=== PATIENT | male | born 1985 | race Caucasian/White ===

== ENCOUNTER 2019-02-09 07:25 | Emergency (ER) | payer MEDICAID ==
[~2019-02-09] VITALS: Ht 172.7 cm; Wt 86.4 kg
[2019-02-09] MEDS ORDERED: SODIUM CHLORIDE 0.9% 1,000 ML IV ONE (07:42)
[2019-02-09] MEDS ORDERED: ONDANSETRON HCL 4 MG/2 ML VIAL IVP ONE (07:45)
[2019-02-09] MEDS ORDERED: MORPHINE SULFATE 4 MG/ML SYRINGE IVP ONE (07:45)
[2019-02-09 08:05] LABS: BASOPHILS % (AUTO) 0.3 % (0.0-2.0); EOSINOPHILS % (AUTO) 1.1 % (1.0-6.0); HEMATOCRIT 46.6 % (41-53); HEMOGLOBIN 15.9 g/dL (13.5-17.5); MEAN CORPUSCULAR HEMOGLOBIN 29.8 pg (26.0-34.0); MEAN CORPUSCULAR HGB CONC 34.1 G/dL (31.0-37.0); MEAN CORPUSCULAR VOLUME 87 fL (80-100); MONOCYTES # (AUTO) 1.1 K/uL (0.1-1.0); NEUTROPHILS # (AUTO) 9.4 K/uL (1.8-7.7); NEUTROPHILS % (AUTO) 68.6 % (40.0-70.0); PLATELET COUNT (AUTO) 236 K/uL (150-450); RED BLOOD CELL COUNT(AUTO) 5.35 MIL/uL (4.50-5.90); RED CELL DISTRIBUTION WIDTH 12.7 % (11.5-14.5)
[2019-02-09 08:08] LABS: ANION GAP 13 mmol/L (8-16); CALCIUM, TOTAL 9.4 mg/dL (8.8-10.5); CARBON DIOXIDE 23 mmol/L (22-29); CHLORIDE 103 mmol/L (98-107); CREATININE 0.82 mg/dL (0.60-1.30); GLOMERULAR FILTR. RATE CALC > 60 mL/min (>60); GLUCOSE,RANDOM 107 mg/dL (70-110); POTASSIUM 3.4 mmol/L (3.5-5.1); SODIUM SERUM 139 mmol/L (136-145); UREA NITROGEN, BLOOD 12 mg/dL (7-18)
[2019-02-09 08:14] LABS: ALANINE AMINOTRANSFERASE 40 U/L (12-78); ALBUMIN 4.1 g/dL (3.4-5.0); ALKALINE PHOSPHATASE 88 U/L (46-116); ASPARTATE AMINOTRANSFERASE 24 U/L (15-37); BILIRUBIN,TOTAL 0.7 mg/dL (0.1-1.0); LIPASE 189 U/L (73-393)
[2019-02-09] MEDS ORDERED: IOVERSOL 350 MG/ML 150 ML VIAL ONE (08:21)
[2019-02-09] MEDS ORDERED: SODIUM CHLORIDE 0.9% 100 ML ONE (08:21)
[2019-02-09 09:07] LABS: APPEARANCE,URINE CLEAR (CLEAR); BILIRUBIN,URINE NEGATIVE (NEGATIVE); GLUCOSE, URINE (UA) NEGATIVE (NEGATIVE); KETONES,URINE NEGATIVE (NEGATIVE); LEUKOCYTE ESTERASE ,URINE NEGATIVE (NEGATIVE); NITRATE,URINE NEGATIVE (NEGATIVE); OCCULT BLOOD,URINE NEGATIVE (NEGATIVE); PROTEIN,URINE NEGATIVE (NEGATIVE); UROBILINOGEN,URINE 0.2 mg/dL (<=1.0)
[2019-02-09] MEDS ORDERED: MetroNIDAZOLE 500 MG/NACL 100 ML IV ONE (09:30)
[2019-02-09] MEDS ORDERED: CIPROFLOXACIN 400 MG/D5% WATER 200 ML IV ONE (09:30)
[2019-02-09] MEDS ORDERED: HYDROCODONE/ACETAMINOPHEN 5-325 MG TABLET PO ONE (11:00)
[2019-02-09 11:17] VITALS: BP 155/123
== END 2019-02-09 11:41 | disposition home or self-care (01) ==
LOC: EMS 07:27
DX: K57.32 Diverticulitis of large intestine without perforation or abscess without bleeding (principal)
CPT/HCPCS: 36415; 74177; 80053; 81003; 83690; 85025; 96361; 96365; 96366; 96368; 96375; 99284; J0744; J2270; J2405; J3490; J7030; J7050; Q9967

== ENCOUNTER 2019-05-29 11:04 | Emergency (ER) | payer MEDICAID ==
[~2019-05-29] VITALS: Ht 177.8 cm; Wt 84.1 kg
[2019-05-29 11:34] VITALS: BP 130/85
== END 2019-05-29 12:03 | disposition home or self-care (01) ==
LOC: EMS 11:05
DX: B02.9 Zoster without complications (principal); L30.9 Dermatitis, unspecified; R07.9 Chest pain, unspecified; M54.9 Dorsalgia, unspecified

== ENCOUNTER 2020-04-17 20:51 | Emergency (ER) | payer MEDICAID ==
[~2020-04-17] VITALS: Ht 177.8 cm; Wt 86.4 kg
[2020-04-17] MEDS ORDERED: SODIUM CHLORIDE 0.9% 1,000 ML IV ONE (22:45)
[2020-04-17] MEDS ORDERED: KETOROLAC TROMETHAMINE 30 MG/ML VIAL IVP ONE (22:45)
[2020-04-17] MEDS ORDERED: SODIUM CHLORIDE 0.9% 100 ML ONE (23:11)
[2020-04-17] MEDS ORDERED: IOVERSOL 350 MG/ML 100 ML VIAL ONE (23:11)
[2020-04-17 23:16] LABS: BASOPHILS % (AUTO) 0.5 % (0.0-2.0); EOSINOPHILS % (AUTO) 2.7 % (1.0-6.0); HEMOGLOBIN 14.7 g/dL (13.5-17.5); LYMPHOCYTES # (AUTO) 4.8 K/uL (1.0-4.8); LYMPHOCYTES % (AUTO) 45.4 % (22.0-44.0); MEAN CORPUSCULAR HEMOGLOBIN 29.9 pg (26.0-34.0); MEAN CORPUSCULAR HGB CONC 33.5 G/dL (31.0-37.0); MEAN CORPUSCULAR VOLUME 89 fL (80-100); MONOCYTES # (AUTO) 0.9 K/uL (0.1-1.0); MONOCYTES % (AUTO) 8.3 % (2.0-9.0); NEUTROPHILS # (AUTO) 4.6 K/uL (1.8-7.7); NEUTROPHILS % (AUTO) 43.1 % (40.0-70.0); PLATELET COUNT (AUTO) 263 K/uL (150-450); RED BLOOD CELL COUNT(AUTO) 4.93 MIL/uL (4.50-5.90); RED CELL DISTRIBUTION WIDTH 12.7 % (11.5-14.5)
[2020-04-17 23:24] LABS: ANION GAP 10 mmol/L (8-16); CALCIUM, TOTAL 8.7 mg/dL (8.8-10.5); CARBON DIOXIDE 26 mmol/L (22-29); CHLORIDE 105 mmol/L (98-107); CREATININE 0.72 mg/dL (0.60-1.30); GLOMERULAR FILTR. RATE CALC > 60 mL/min (>60); GLUCOSE,RANDOM 104 mg/dL (70-110); POTASSIUM 3.5 mmol/L (3.5-5.1); SODIUM SERUM 141 mmol/L (136-145); UREA NITROGEN, BLOOD 13 mg/dL (7-18)
[2020-04-17 23:30] LABS: ALANINE AMINOTRANSFERASE 36 U/L (12-78); ALBUMIN 4.2 g/dL (3.4-5.0); ALKALINE PHOSPHATASE 94 U/L (46-116); APPEARANCE,URINE CLEAR (CLEAR); ASPARTATE AMINOTRANSFERASE 22 U/L (15-37); BILIRUBIN,TOTAL 0.2 mg/dL (0.1-1.0); BILIRUBIN,URINE NEGATIVE (NEGATIVE); GLUCOSE, URINE (UA) NEGATIVE (NEGATIVE); KETONES,URINE NEGATIVE (NEGATIVE); LEUKOCYTE ESTERASE ,URINE SMALL (NEGATIVE); LIPASE 193 U/L (73-393); NITRATE,URINE NEGATIVE (NEGATIVE); OCCULT BLOOD,URINE NEGATIVE (NEGATIVE); PH,URINE 6.5 (5.0-8.0); PROTEIN,URINE NEGATIVE (NEGATIVE); TOTAL PROTEIN, SERUM 8.4 g/dL (6.4-8.2)
[2020-04-17 23:53] LABS: BACTERIA,URINE None Seen /HPF (None Seen); RBC,URINE None Seen /HPF (0-2); SQUAMOUS EPITHELIAL CELL,UR Few /LPF (None Seen)
[2020-04-18] MEDS ORDERED: CefTRIAXone 1 GM/DEXTROSE 50 ML IV ONE (00:15)
[2020-04-18] MEDS ORDERED: AMOX TR/POT CLAV 875 MG/125 MG TABLET PO ONE (02:15)
[2020-04-18 02:30] VITALS: BP 126/77
== END 2020-04-18 02:55 | disposition home or self-care (01) ==
LOC: EMS 20:51
DX: K52.9 Noninfective gastroenteritis and colitis, unspecified (principal); K57.32 Diverticulitis of large intestine without perforation or abscess without bleeding
CPT/HCPCS: 36415; 74177; 80053; 81001; 83690; 85025; 87086; 96361; 96365; 96375; 99285; J0696; J1885; J7030; J7050; Q9967

== ENCOUNTER 2021-11-29 09:32 | Emergency (ER) | payer MEDICAID ==
[~2021-11-29] VITALS: Ht 177.8 cm; Wt 90.9 kg
[~2021-11-29 09:32] MED LIST: AMOX1TAB15 PO; FLUO-191 PO
[2021-11-29] MEDS ORDERED: ACETAMINOPHEN 500 MG TABLET PO ONE (10:15)
[2021-11-29 10:34] LABS: COVID AG,FIA SOURCE NASAL SWAB
[2021-11-29 11:01] LABS: INFLUENZA TYPE A NEGATIVE FOR TYPE A (NEGATIVE); INFLUENZA TYPE B NEGATIVE FOR TYPE B (NEGATIVE)
[2021-11-29 13:01] VITALS: BP 122/66
== END 2021-11-29 13:04 | disposition home or self-care (01) ==
LOC: EMS 09:49
DX: R05.9 Cough, unspecified (principal); Z20.822 Contact with and (suspected) exposure to COVID-19; Z79.899 Other long term (current) drug therapy
CPT/HCPCS: 87804; 99283

== ENCOUNTER 2021-12-26 21:57 | Inpatient (IN) | payer MEDICAID ==
[~2021-12-26] VITALS: Ht 177.8 cm; Wt 90.0 kg
[2021-12-26] MEDS ORDERED: SODIUM CHLORIDE 0.9% 100 ML ONE (22:38)
[2021-12-26] MEDS ORDERED: IOHEXOL 350 MG/ML 100 ML VIAL ONE (22:38)
[2021-12-26] MEDS ORDERED: ONDANSETRON HCL 4 MG/2 ML VIAL IVP ONE (22:45)
[2021-12-26] MEDS ORDERED: SODIUM CHLORIDE 0.9% 1,000 ML IV ONE (22:45)
[2021-12-26] MEDS ORDERED: KETOROLAC TROMETHAMINE 30 MG/ML VIAL IVP ONE (22:45)
[2021-12-26 22:51] LABS: BASOPHILS % (AUTO) 0.3 % (0.0-2.0); EOSINOPHILS % (AUTO) 4.6 % (1.0-6.0); HEMATOCRIT 41.7 % (41-53); HEMOGLOBIN 14.2 g/dL (13.5-17.5); LYMPHOCYTES # (AUTO) 4.8 K/uL (1.0-4.8); LYMPHOCYTES % (AUTO) 42.5 % (22.0-44.0); MEAN CORPUSCULAR HEMOGLOBIN 29.9 pg (26.0-34.0); MEAN CORPUSCULAR HGB CONC 34.1 G/dL (31.0-37.0); MEAN CORPUSCULAR VOLUME 88 fL (80-100); MONOCYTES % (AUTO) 8.9 % (2.0-9.0); NEUTROPHILS # (AUTO) 4.9 K/uL (1.8-7.7); NEUTROPHILS % (AUTO) 43.7 % (40.0-70.0); PLATELET COUNT (AUTO) 198 K/uL (150-450); RED BLOOD CELL COUNT(AUTO) 4.76 MIL/uL (4.50-5.90); RED CELL DISTRIBUTION WIDTH 13.2 % (11.5-14.5)
[2021-12-26 22:59] LABS: ANION GAP 7 mmol/L (8-16); CARBON DIOXIDE 27 mmol/L (22-29); CHLORIDE 102 mmol/L (98-107); CREATININE 0.77 mg/dL (0.60-1.30); GLOMERULAR FILTR. RATE CALC > 60 mL/min (>60); GLUCOSE,RANDOM 104 mg/dL (70-110); POTASSIUM 3.5 mmol/L (3.5-5.1); SODIUM SERUM 136 mmol/L (136-145); UREA NITROGEN, BLOOD 14 mg/dL (7-18)
[2021-12-26 23:04] LABS: ALANINE AMINOTRANSFERASE 60 U/L (12-78); ALKALINE PHOSPHATASE 110 U/L (46-116); ASPARTATE AMINOTRANSFERASE 28 U/L (15-37); BILIRUBIN,TOTAL 0.5 mg/dL (0.1-1.0); LIPASE 132 U/L (73-393); TOTAL PROTEIN, SERUM 8.2 g/dL (6.4-8.2)
[2021-12-26] MEDS ORDERED: MORPHINE SULFATE 4 MG/ML SYRINGE IVP ONE (23:45)
[2021-12-27] MEDS ORDERED: PIPERACILLIN/TAZO 3.375 GM/D5W 50 ML IV ONE (03:30)
[2021-12-27] MEDS ORDERED: MORPHINE SULFATE 2 MG/ML SYRINGE IVP ONE (03:45)
[2021-12-27] MEDS ORDERED: ONDANSETRON HCL 4 MG/2 ML VIAL IVP PRN ×2 (04:15→07:45)
[2021-12-27] MEDS ORDERED: 0.9% SODIUM CHLORIDE 10 ML SYRINGE IVP PRN (04:15)
[2021-12-27] MEDS ORDERED: ACETAMINOPHEN 325 MG TABLET PO PRN ×2 (04:15→07:45)
[2021-12-27 05:07] VITALS: BP 116/70
[2021-12-27 05:31] LABS: COVID AG,FIA SOURCE NASAL SWAB
[2021-12-27 08:05] VITALS: BP 131/7
[2021-12-27] MEDS: PANTOPRAZOLE SODIUM 40 MG/VIAL IVP SCH (08:25)
[2021-12-27] MEDS: MORPHINE SULFATE 4 MG/ML SYRINGE IVP PRN ×4 (08:26→22:47)
[2021-12-27] MEDS: DEXTROSE 5%-0.45% SODIUM CHL 1,000 ML IV SCH ×2 (08:26→22:42)
[2021-12-27] MEDS: DOCUSATE SODIUM 100 MG CAPSULE PO SCH ×2 (08:42→21:00)
[2021-12-27] MEDS: PIPERACILLIN/TAZO 3.375 GM/D5W 50 ML IV SCH ×3 (10:22→22:41)
[2021-12-27] MEDS ORDERED: PEG 3350/NA SULF,BICARB,CL/KCL 4000 ML SOLUTION PO ONE (16:00)
[2021-12-27 16:25] VITALS: BP 129/80
[2021-12-27 20:51] VITALS: BP 120/68
[2021-12-28] MEDS: MORPHINE SULFATE 4 MG/ML SYRINGE IVP PRN ×7 (01:46→22:05)
[2021-12-28] MEDS: PIPERACILLIN/TAZO 3.375 GM/D5W 50 ML IV SCH ×4 (03:59→22:09)
[2021-12-28 05:28] VITALS: BP 98/64
[2021-12-28 07:39] VITALS: BP 126/81
[2021-12-28] MEDS ORDERED: SODIUM CHLORIDE 0.9% 1,000 ML ONE (07:48)
[2021-12-28] MEDS: DOCUSATE SODIUM 100 MG CAPSULE PO SCH ×2 (08:14→21:00)
[2021-12-28] MEDS: PANTOPRAZOLE SODIUM 40 MG/VIAL IVP SCH (10:18)
[2021-12-28] MEDS: DEXTROSE 5%-0.45% SODIUM CHL 1,000 ML IV SCH (12:46)
[2021-12-28 15:22] VITALS: BP 122/67
[2021-12-28] MEDS: ERYTHROMYCIN BASE 500 MG TABLET PO SCH ×2 (17:26→23:51)
[2021-12-28] MEDS: NEOMYCIN SULFATE 500 MG TABLET PO SCH ×2 (17:26→23:51)
[2021-12-28 19:29] VITALS: BP 101/60
[2021-12-29] MEDS: DEXTROSE 5%-0.45% SODIUM CHL 1,000 ML IV SCH ×2 (03:50→16:54)
[2021-12-29] MEDS: MORPHINE SULFATE 4 MG/ML SYRINGE IVP PRN ×5 (03:57→19:49)
[2021-12-29 04:59] VITALS: BP 105/60
[2021-12-29] MEDS: PIPERACILLIN/TAZO 3.375 GM/D5W 50 ML IV SCH ×4 (05:01→21:44)
[2021-12-29] MEDS ORDERED: FentaNYL CITRATE PF 100 MCG/2 ML VIAL IVP ONE (06:24)
[2021-12-29] MEDS ORDERED: LIDOCAINE/PF 2% 5 ML VIAL IM ONE (06:24)
[2021-12-29] MEDS ORDERED: PROPOFOL 1% 20 ML VIAL IVP ONE (06:24)
[2021-12-29] MEDS ORDERED: MIDAZOLAM HCL 2 MG/2 ML VIAL IVP ONE (06:24)
[2021-12-29] MEDS ORDERED: RINGERS SOLUTION,LACTATED 1,000 ML IV ONE (06:39)
[2021-12-29] MEDS ORDERED: BUPIVACAINE HCL/PF 0.25% 30 ML VIAL ONE (06:58)
[2021-12-29] MEDS ORDERED: BUPIVACAINE LIPOSOME/PF 1.3%-13.3MG/ML SUSPENSION 20 ML VIAL INJ ONE (07:00)
[2021-12-29] MEDS ORDERED: MetroNIDAZOLE 500 MG/NACL 100 ML IV ONE (07:57)
[2021-12-29] MEDS ORDERED: FentaNYL CITRATE PF 100 MCG/2 ML VIAL IVP PRN (08:15)
[2021-12-29] MEDS ORDERED: SUGAMMADEX SODIUM 200 MG/2 ML VIAL IVP ONE (09:26)
[2021-12-29] MEDS ORDERED: ACETAMINOPHEN 500 MG TABLET PO PRN (09:45)
[2021-12-29] MEDS ORDERED: HYDROmorphone 2 MG/ML VIAL IVP PRN (09:45)
[2021-12-29] MEDS ORDERED: HYDROmorphone 2 MG/ML VIAL ONE (10:09)
[2021-12-29] MEDS: HYDROmorphone 2 MG/ML VIAL IVP PRN ×2 (10:16→10:27)
[2021-12-29 11:05] VITALS: BP 117/76
[2021-12-29] MEDS: PANTOPRAZOLE SODIUM 40 MG/VIAL IVP SCH (11:10)
[2021-12-29] MEDS: DOCUSATE SODIUM 100 MG CAPSULE PO SCH ×2 (11:10→19:48)
[2021-12-29] MEDS: KETOROLAC TROMETHAMINE 30 MG/ML VIAL IVP SCH ×3 (12:32→23:44)
[2021-12-29] MEDS: CYCLOBENZAPRINE HCL 10 MG TABLET PO SCH ×3 (12:33→23:44)
[2021-12-29 15:17] LABS: EOSINOPHILS % (AUTO) 0 % (1.0-6.0); HEMATOCRIT 40.2 % (41-53); HEMOGLOBIN 13.7 g/dL (13.5-17.5); LYMPHOCYTES # (AUTO) 0.9 K/uL (1.0-4.8); LYMPHOCYTES % (AUTO) 7.2 % (22.0-44.0); MEAN CORPUSCULAR HEMOGLOBIN 29.7 pg (26.0-34.0); MEAN CORPUSCULAR HGB CONC 34.1 G/dL (31.0-37.0); MEAN CORPUSCULAR VOLUME 87 fL (80-100); MONOCYTES # (AUTO) 0.2 K/uL (0.1-1.0); MONOCYTES % (AUTO) 1.6 % (2.0-9.0); NEUTROPHILS # (AUTO) 11.1 K/uL (1.8-7.7); PLATELET COUNT (AUTO) 206 K/uL (150-450); RED BLOOD CELL COUNT(AUTO) 4.61 MIL/uL (4.50-5.90); RED CELL DISTRIBUTION WIDTH 12.7 % (11.5-14.5)
[2021-12-29 15:19] LABS: NEUTROPHILS % (AUTO) 91.2 % (40.0-70.0)
[2021-12-29 15:36] LABS: ANION GAP 11 mmol/L (8-16); CALCIUM, TOTAL 8.6 mg/dL (8.8-10.5); CARBON DIOXIDE 26 mmol/L (22-29); CHLORIDE 101 mmol/L (98-107); CREATININE 0.93 mg/dL (0.60-1.30); GLOMERULAR FILTR. RATE CALC > 60 mL/min (>60); GLUCOSE,RANDOM 196 mg/dL (70-110); SODIUM SERUM 138 mmol/L (136-145); UREA NITROGEN, BLOOD 9 mg/dL (7-18)
[2021-12-29 15:42] LABS: ALANINE AMINOTRANSFERASE 43 U/L (12-78); ALBUMIN 3.3 g/dL (3.4-5.0); ALKALINE PHOSPHATASE 88 U/L (46-116); ASPARTATE AMINOTRANSFERASE 28 U/L (15-37); BILIRUBIN,TOTAL 0.6 mg/dL (0.1-1.0); TOTAL PROTEIN, SERUM 7.7 g/dL (6.4-8.2)
[2021-12-29 15:52] VITALS: BP 122/82
[2021-12-29 19:36] VITALS: BP 114/67
[2021-12-29] MEDS: OXYGEN THERAPY IH SCH (20:00)
[2021-12-29 20:46] LABS: APPEARANCE,URINE HAZY (CLEAR); BILIRUBIN,URINE NEGATIVE (NEGATIVE); GLUCOSE, URINE (UA) >=1000 mg/dL (NEGATIVE); LEUKOCYTE ESTERASE ,URINE TRACE (NEGATIVE); NITRATE,URINE NEGATIVE (NEGATIVE); OCCULT BLOOD,URINE NEGATIVE (NEGATIVE); PROTEIN,URINE TRACE mg/dL (NEGATIVE); SPECIFIC GRAVITIY, URINE 1.034 (1.003-1.030); UROBILINOGEN,URINE <=1.0 mg/dL (<=1.0)
[2021-12-29 20:53] LABS: BACTERIA,URINE Rare /HPF (None Seen); RBC,URINE 0-2 /HPF (0-2); SQUAMOUS EPITHELIAL CELL,UR Rare /LPF (None Seen); WBC,URINE 0-2 /HPF (0-5)
[2021-12-30] MEDS: PIPERACILLIN/TAZO 3.375 GM/D5W 50 ML IV SCH ×4 (03:20→21:06)
[2021-12-30 05:12] VITALS: BP 106/70
[2021-12-30] MEDS: KETOROLAC TROMETHAMINE 30 MG/ML VIAL IVP SCH ×4 (05:13→23:39)
[2021-12-30] MEDS: CYCLOBENZAPRINE HCL 10 MG TABLET PO SCH ×4 (05:14→23:40)
[2021-12-30] MEDS ORDERED: SUGAMMADEX SODIUM 200 MG/2 ML VIAL IVP ONE (05:31)
[2021-12-30] MEDS ORDERED: MIDAZOLAM HCL 2 MG/2 ML VIAL IVP ONE (05:31)
[2021-12-30] MEDS ORDERED: CefoTEtan DISODIUM 1 GM/VIAL IVP ONE (05:31)
[2021-12-30] MEDS ORDERED: DEXAMETHASONE SOD PHOS 4 MG/ML VIAL IVP ONE (05:31)
[2021-12-30] MEDS ORDERED: LIDOCAINE/PF 2% 5 ML VIAL IM ONE (05:31)
[2021-12-30] MEDS ORDERED: ONDANSETRON HCL 4 MG/2 ML VIAL IVP ONE (05:31)
[2021-12-30] MEDS ORDERED: ACETAMINOPHEN/ISO-OSM 1000 MG/100 ML BOTTLE IV ONE (05:31)
[2021-12-30] MEDS ORDERED: PROPOFOL 1% 20 ML VIAL IVP ONE (05:31)
[2021-12-30] MEDS ORDERED: GLYCOPYRROLATE 0.2 MG/ML VIAL IM ONE (05:31)
[2021-12-30] MEDS ORDERED: ROCURONIUM BROMIDE 10 MG/ML 5 ML VIAL IVP ONE (05:31)
[2021-12-30 06:16] LABS: EOSINOPHILS % (AUTO) 0 % (1.0-6.0); HEMOGLOBIN 13.5 g/dL (13.5-17.5); LYMPHOCYTES # (AUTO) 1.7 K/uL (1.0-4.8); LYMPHOCYTES % (AUTO) 10.6 % (22.0-44.0); MEAN CORPUSCULAR HGB CONC 33.8 G/dL (31.0-37.0); MEAN CORPUSCULAR VOLUME 89 fL (80-100); MONOCYTES % (AUTO) 6.2 % (2.0-9.0); NEUTROPHILS # (AUTO) 13.5 K/uL (1.8-7.7); NEUTROPHILS % (AUTO) 83.2 % (40.0-70.0); PLATELET COUNT (AUTO) 222 K/uL (150-450); RED BLOOD CELL COUNT(AUTO) 4.49 MIL/uL (4.50-5.90); RED CELL DISTRIBUTION WIDTH 12.8 % (11.5-14.5)
[2021-12-30 06:33] LABS: ALANINE AMINOTRANSFERASE 38 U/L (12-78); ALBUMIN 3.2 g/dL (3.4-5.0); ALKALINE PHOSPHATASE 85 U/L (46-116); ANION GAP 7 mmol/L (8-16); ASPARTATE AMINOTRANSFERASE 19 U/L (15-37); BILIRUBIN,TOTAL 0.6 mg/dL (0.1-1.0); CALCIUM, TOTAL 8.6 mg/dL (8.8-10.5); CARBON DIOXIDE 28 mmol/L (22-29); CHLORIDE 101 mmol/L (98-107); CREATININE 0.95 mg/dL (0.60-1.30); GLOMERULAR FILTR. RATE CALC > 60 mL/min (>60); GLUCOSE,RANDOM 165 mg/dL (70-110); POTASSIUM 3.7 mmol/L (3.5-5.1); SODIUM SERUM 136 mmol/L (136-145); TOTAL PROTEIN, SERUM 7.9 g/dL (6.4-8.2); UREA NITROGEN, BLOOD 9 mg/dL (7-18)
[2021-12-30] MEDS: DEXTROSE 5%-0.45% SODIUM CHL 1,000 ML IV SCH (07:33)
[2021-12-30] MEDS: OXYGEN THERAPY IH SCH (08:00)
[2021-12-30] MEDS: PANTOPRAZOLE SODIUM 40 MG/VIAL IVP SCH (08:17)
[2021-12-30] MEDS: DOCUSATE SODIUM 100 MG CAPSULE PO SCH ×2 (08:17→21:06)
[2021-12-30 08:21] VITALS: BP 120/60
[2021-12-30] MEDS: MORPHINE SULFATE 4 MG/ML SYRINGE IVP PRN ×2 (08:31→16:30)
[2021-12-30 18:48] VITALS: BP 117/74
[2021-12-30 21:00] VITALS: BP 100/62
[2021-12-31] MEDS: PIPERACILLIN/TAZO 3.375 GM/D5W 50 ML IV SCH ×4 (03:32→20:44)
[2021-12-31 04:25] VITALS: BP 116/66
[2021-12-31] MEDS: KETOROLAC TROMETHAMINE 30 MG/ML VIAL IVP SCH ×3 (05:09→17:40)
[2021-12-31] MEDS: CYCLOBENZAPRINE HCL 10 MG TABLET PO SCH ×3 (05:16→17:40)
[2021-12-31 06:43] LABS: BASOPHILS % (AUTO) 0.2 % (0.0-2.0); EOSINOPHILS % (AUTO) 0.9 % (1.0-6.0); HEMATOCRIT 36.6 % (41-53); HEMOGLOBIN 12.6 g/dL (13.5-17.5); LYMPHOCYTES # (AUTO) 3.8 K/uL (1.0-4.8); LYMPHOCYTES % (AUTO) 31.5 % (22.0-44.0); MEAN CORPUSCULAR HEMOGLOBIN 30.1 pg (26.0-34.0); MEAN CORPUSCULAR HGB CONC 34.4 G/dL (31.0-37.0); MEAN CORPUSCULAR VOLUME 88 fL (80-100); MONOCYTES # (AUTO) 0.9 K/uL (0.1-1.0); MONOCYTES % (AUTO) 7.7 % (2.0-9.0); NEUTROPHILS # (AUTO) 7.2 K/uL (1.8-7.7); NEUTROPHILS % (AUTO) 59.7 % (40.0-70.0); PLATELET COUNT (AUTO) 209 K/uL (150-450); RED BLOOD CELL COUNT(AUTO) 4.18 MIL/uL (4.50-5.90); RED CELL DISTRIBUTION WIDTH 12.8 % (11.5-14.5)
[2021-12-31 07:01] LABS: ALANINE AMINOTRANSFERASE 30 U/L (12-78); ALBUMIN 2.9 g/dL (3.4-5.0); ALKALINE PHOSPHATASE 73 U/L (46-116); ANION GAP 9 mmol/L (8-16); ASPARTATE AMINOTRANSFERASE 17 U/L (15-37); BILIRUBIN,TOTAL 0.4 mg/dL (0.1-1.0); CALCIUM, TOTAL 8.4 mg/dL (8.8-10.5); CARBON DIOXIDE 29 mmol/L (22-29); CHLORIDE 103 mmol/L (98-107); CREATININE 0.84 mg/dL (0.60-1.30); GLOMERULAR FILTR. RATE CALC > 60 mL/min (>60); GLUCOSE,RANDOM 93 mg/dL (70-110); POTASSIUM 3.7 mmol/L (3.5-5.1); SODIUM SERUM 141 mmol/L (136-145); TOTAL PROTEIN, SERUM 7.1 g/dL (6.4-8.2); UREA NITROGEN, BLOOD 13 mg/dL (7-18)
[2021-12-31 07:43] VITALS: BP 110/72
[2021-12-31] MEDS: OXYGEN THERAPY IH SCH (08:00)
[2021-12-31] MEDS: DOCUSATE SODIUM 100 MG CAPSULE PO SCH ×2 (08:50→20:45)
[2021-12-31] MEDS: PANTOPRAZOLE SODIUM 40 MG/VIAL IVP SCH (08:50)
[2021-12-31] MEDS: MORPHINE SULFATE 4 MG/ML SYRINGE IVP PRN (09:24)
[2021-12-31 11:40] VITALS: BP 107/61
[2021-12-31 15:25] VITALS: BP 99/64
[2021-12-31] MEDS: POVIDONE-IODINE 10% 15 ML SOLUTION UD TP SCH (16:30)
[2021-12-31 21:27] VITALS: BP 109/70
[2022-01-01] MEDS: CYCLOBENZAPRINE HCL 10 MG TABLET PO SCH ×3 (00:42→11:32)
[2022-01-01] MEDS: KETOROLAC TROMETHAMINE 30 MG/ML VIAL IVP SCH ×3 (00:42→11:32)
[2022-01-01] MEDS: PIPERACILLIN/TAZO 3.375 GM/D5W 50 ML IV SCH ×2 (05:00→10:56)
[2022-01-01 05:23] VITALS: BP 107/63
[2022-01-01 06:24] LABS: BASOPHILS % (AUTO) 0.3 % (0.0-2.0); EOSINOPHILS % (AUTO) 2.8 % (1.0-6.0); HEMOGLOBIN 12.8 g/dL (13.5-17.5); LYMPHOCYTES # (AUTO) 4.7 K/uL (1.0-4.8); LYMPHOCYTES % (AUTO) 31.8 % (22.0-44.0); MEAN CORPUSCULAR HEMOGLOBIN 30.8 pg (26.0-34.0); MEAN CORPUSCULAR HGB CONC 34.6 G/dL (31.0-37.0); MEAN CORPUSCULAR VOLUME 89 fL (80-100); MONOCYTES # (AUTO) 1.3 K/uL (0.1-1.0); MONOCYTES % (AUTO) 8.8 % (2.0-9.0); NEUTROPHILS # (AUTO) 8.3 K/uL (1.8-7.7); NEUTROPHILS % (AUTO) 56.3 % (40.0-70.0); PLATELET COUNT (AUTO) 223 K/uL (150-450); RED BLOOD CELL COUNT(AUTO) 4.16 MIL/uL (4.50-5.90); RED CELL DISTRIBUTION WIDTH 12.9 % (11.5-14.5)
[2022-01-01 06:32] LABS: ALANINE AMINOTRANSFERASE 41 U/L (12-78); ALKALINE PHOSPHATASE 77 U/L (46-116); ANION GAP 6 mmol/L (8-16); ASPARTATE AMINOTRANSFERASE 30 U/L (15-37); BILIRUBIN,TOTAL 0.4 mg/dL (0.1-1.0); CALCIUM, TOTAL 8.6 mg/dL (8.8-10.5); CARBON DIOXIDE 30 mmol/L (22-29); CHLORIDE 105 mmol/L (98-107); CREATININE 0.82 mg/dL (0.60-1.30); GLOMERULAR FILTR. RATE CALC > 60 mL/min (>60); GLUCOSE,RANDOM 90 mg/dL (70-110); POTASSIUM 3.8 mmol/L (3.5-5.1); SODIUM SERUM 141 mmol/L (136-145); TOTAL PROTEIN, SERUM 7.4 g/dL (6.4-8.2); UREA NITROGEN, BLOOD 15 mg/dL (7-18)
[2022-01-01] MEDS ORDERED: FentaNYL CITRATE PF 100 MCG/2 ML VIAL IVP ONE (06:41)
[2022-01-01 07:29] VITALS: BP 116/65
[2022-01-01] MEDS: OXYGEN THERAPY IH SCH ×2 (08:00→08:33)
[2022-01-01] MEDS ORDERED: METR500 PO (09:25)
[2022-01-01] MEDS ORDERED: AMOX1TAB16 PO (09:25)
[2022-01-01] MEDS ORDERED: DOCU-119 PO (09:25)
[2022-01-01] MEDS: DOCUSATE SODIUM 100 MG CAPSULE PO SCH (10:55)
[2022-01-01] MEDS: PANTOPRAZOLE SODIUM 40 MG/VIAL IVP SCH (10:55)
[2022-01-01] MEDS: POVIDONE-IODINE 10% 15 ML SOLUTION UD TP SCH (11:00)
== END 2022-01-01 13:10 | disposition home or self-care (01) | DRG 231 ==
LOC: EMS 21:58 → 6S 12-27 03:46 → 6N 12-31 00:48
PROVIDERS: ADMIT Internal Medicine; ATTEND Internal Medicine
PROC: 0DBN8ZX Excision of Sigmoid Colon, Via Natural or Artificial Opening Endoscopic, Diagnostic (ICD-10-PCS; principal; 2021-12-28 08:30)
PROC: 0DBN0ZZ Excision of Sigmoid Colon, Open Approach (ICD-10-PCS; 2021-12-29)
DX: K57.20 Diverticulitis of large intestine with perforation and abscess without bleeding (principal); R65.10 Systemic inflammatory response syndrome (SIRS) of non-infectious origin without acute organ dysfunction; K64.0 First degree hemorrhoids; K44.9 Diaphragmatic hernia without obstruction or gangrene; D64.9 Anemia, unspecified; Z20.822 Contact with and (suspected) exposure to COVID-19; Z90.49 Acquired absence of other specified parts of digestive tract; K57.30 Diverticulosis of large intestine without perforation or abscess without bleeding
CPT/HCPCS: 74177; 80053; 81001; 83690; 85025; 87081; 88305; 88307; 99285; C9113; C9290; G0238; J0131; J1100; J1170; J1885; J2250; J2270; J2405; J2543; J2704; J3010; J3490; J7030; J7050; J7120; Q9967

== ENCOUNTER 2022-01-19 16:54 | Emergency (ER) | payer MEDICAID ==
[~2022-01-19] VITALS: Ht 177.8 cm; Wt 89.0 kg
[~2022-01-19 16:54] MED LIST changes: -AMOX1TAB15 PO; +AMOX1TAB16 PO; +DOCU-119 PO; +METR500 PO
[2022-01-19 19:19] VITALS: BP 121/43
== END 2022-01-19 19:28 | disposition home or self-care (01) ==
LOC: EMS 16:55
DX: S31.119D Laceration without foreign body of abdominal wall, unspecified quadrant without penetration into peritoneal cavity, subsequent encounter (principal); F32.A Depression, unspecified; F42.9 Obsessive-compulsive disorder, unspecified; Z90.49 Acquired absence of other specified parts of digestive tract; Z98.890 Other specified postprocedural states
CPT/HCPCS: 99281; 99282; Z7502

== ENCOUNTER 2022-02-02 14:54 | Emergency (ER) | payer MEDICAID ==
[~2022-02-02] VITALS: Ht 177.8 cm; Wt 90.0 kg
[~2022-02-02 14:54] MED LIST changes: +FLUO-177 PO; -FLUO-191 PO
[2022-02-02] MEDS ORDERED: KETOROLAC TROMETHAMINE 30 MG/ML VIAL IM ONE (15:30)
[2022-02-02] MEDS ORDERED: PERTUSS(ACELL),DIPH,TET VAC/PF 0.5 ML SYRINGE IM. ONE (15:45)
[2022-02-02] MEDS ORDERED: CEPH-558 PO (15:56)
[2022-02-02 16:30] VITALS: BP 132/73
== END 2022-02-02 16:50 | disposition home or self-care (01) ==
LOC: EMS 14:54
DX: S61.032A Puncture wound without foreign body of left thumb without damage to nail, initial encounter (principal); W45.8XXA Other foreign body or object entering through skin, initial encounter; Y93.89 Activity, other specified; Y92.89 Other specified places as the place of occurrence of the external cause; Y99.8 Other external cause status
CPT/HCPCS: 73130; 90471; 90715; 96372; 99284; J1885

== ENCOUNTER → 2022-08-14 | Emergency (ER) | payer MEDICAID ==
[~2022-08-14] VITALS: Ht 180.3 cm; Wt 90.9 kg
[~2022-08-14] MED LIST changes: +AMOX TR/POT CLAV 875 MG/125 MG TABLET PO ONE; +CEPH-558 PO; -DOCU-119 PO; +HYDR-4808 PO; +IBUPROFEN 600 MG TABLET PO ONE; -METR500 PO; +PRAZ2 PO; +TERB250T90 PO
[2022-08-14 19:05] LABS: BASOPHILS % (AUTO) 0.4 % (0.0-2.0); EOSINOPHILS % (AUTO) 2.7 % (1.0-6.0); HEMATOCRIT 43.2 % (41-53); HEMOGLOBIN 14.5 g/dL (13.5-17.5); LYMPHOCYTES # (AUTO) 3.8 K/uL (1.0-4.8); LYMPHOCYTES % (AUTO) 43.1 % (22.0-44.0); MEAN CORPUSCULAR HEMOGLOBIN 29.9 pg (26.0-34.0); MEAN CORPUSCULAR HGB CONC 33.5 G/dL (31.0-37.0); MEAN CORPUSCULAR VOLUME 89 fL (80-100); MONOCYTES # (AUTO) 0.8 K/uL (0.1-1.0); MONOCYTES % (AUTO) 9.5 % (2.0-9.0); NEUTROPHILS % (AUTO) 44.3 % (40.0-70.0); PLATELET COUNT (AUTO) 232 K/uL (150-450); RED BLOOD CELL COUNT(AUTO) 4.83 MIL/uL (4.50-5.90); RED CELL DISTRIBUTION WIDTH 13.1 % (11.5-14.5)
[2022-08-14 19:14] LABS: ANION GAP 7 mmol/L (8-16); CALCIUM, TOTAL 8.9 mg/dL (8.8-10.5); CARBON DIOXIDE 27 mmol/L (22-29); CHLORIDE 104 mmol/L (98-107); CREATININE 0.78 mg/dL (0.60-1.30); GLUCOSE,RANDOM 106 mg/dL (70-110); POTASSIUM 3.7 mmol/L (3.5-5.1); SODIUM SERUM 138 mmol/L (136-145); UREA NITROGEN, BLOOD 18 mg/dL (7-18)
[2022-08-14 19:15] LABS: GLOMERULAR FILTR. RATE CALC > 60 mL/min (>60)
[2022-08-14 19:20] LABS: ALANINE AMINOTRANSFERASE 55 U/L (12-78); ALBUMIN 4.1 g/dL (3.4-5.0); ALKALINE PHOSPHATASE 110 U/L (46-116); ASPARTATE AMINOTRANSFERASE 24 U/L (15-37); BILIRUBIN,TOTAL 0.4 mg/dL (0.1-1.0); TOTAL PROTEIN, SERUM 7.9 g/dL (6.4-8.2)
[2022-08-14 19:30] VITALS: BP 117/74
== END | disposition home or self-care (01) ==
LOC: EMS 18:25
DX: K08.89 Other specified disorders of teeth and supporting structures (principal); F32.9 Major depressive disorder, single episode, unspecified; Z90.49 Acquired absence of other specified parts of digestive tract; Z90.89 Acquired absence of other organs
CPT/HCPCS: 80053; 85025; 99283

== ENCOUNTER 2024-06-13 19:27 | Emergency (ER) | payer MEDICAID ==
[~2024-06-13] VITALS: Ht 175.3 cm; Wt 104.5 kg
[~2024-06-13 19:27] MED LIST changes: -AMOX TR/POT CLAV 875 MG/125 MG TABLET PO ONE; +AMOX-457 PO; -AMOX1TAB16 PO; -CEPH-558 PO; -IBUPROFEN 600 MG TABLET PO ONE
[2024-06-13 19:50] VITALS: TEMP 98.1
[2024-06-13 21:29] LABS: BASOPHILS % (AUTO) 0.5 % (0.0-2.0); EOSINOPHILS % (AUTO) 2.9 % (1.0-6.0); HEMATOCRIT 41.8 % (41-53); HEMOGLOBIN 14.2 g/dL (13.5-17.5); LYMPHOCYTES # (AUTO) 4.4 K/uL (1.0-4.8); LYMPHOCYTES % (AUTO) 45.9 % (22.0-44.0); MEAN CORPUSCULAR HEMOGLOBIN 30.5 pg (26.0-34.0); MEAN CORPUSCULAR VOLUME 90 fL (80-100); MONOCYTES # (AUTO) 0.9 K/uL (0.1-1.0); MONOCYTES % (AUTO) 9.4 % (2.0-9.0); NEUTROPHILS % (AUTO) 41.3 % (40.0-70.0); PLATELET COUNT (AUTO) 208 K/uL (150-450); RED BLOOD CELL COUNT(AUTO) 4.65 MIL/uL (4.50-5.90); RED CELL DISTRIBUTION WIDTH 13.2 % (11.5-14.5); WHITE BLOOD COUNT (AUTO) 9.6 K/uL (4.5-11.0)
[2024-06-13 21:37] LABS: ANION GAP 10 mmol/L (8-16); CALCIUM, TOTAL 8.5 mg/dL (8.8-10.5); CARBON DIOXIDE 26 mmol/L (22-29); CHLORIDE 104 mmol/L (98-107); CREATININE 0.97 mg/dL (0.60-1.30); GLOMERULAR FILTR. RATE CALC > 60 mL/min (>60); GLUCOSE,RANDOM 106 mg/dL (70-110); POTASSIUM 3.6 mmol/L (3.5-5.1); SODIUM SERUM 140 mmol/L (136-145); UREA NITROGEN, BLOOD 25 mg/dL (7-18)
[2024-06-13 22:02] LABS: ALANINE AMINOTRANSFERASE 63 U/L (12-78); ALBUMIN 3.6 g/dL (3.4-5.0); ALKALINE PHOSPHATASE 110 U/L (46-116); ASPARTATE AMINOTRANSFERASE 38 U/L (15-37); BILIRUBIN,TOTAL 0.4 mg/dL (0.1-1.0); CREATINE KINASE, TOTAL ONLY 527 U/L (39-308); TOTAL PROTEIN, SERUM 7.5 g/dL (6.4-8.2)
[2024-06-13] MEDS: MECLIZINE HCL 25 MG TABLET PO ONE (23:29)
[2024-06-13] MEDS: SODIUM CHLORIDE 0.9% 1,000 ML IV ONE (23:32)
[2024-06-13] MEDS: MORPHINE SULFATE 4 MG/ML SYRINGE IVP ONE (23:33)
[2024-06-13] MEDS: KETOROLAC TROMETHAMINE 30 MG/ML VIAL IVP ONE (23:33)
[2024-06-13] MEDS: ONDANSETRON HCL 4 MG/2 ML VIAL IVP ONE (23:33)
[2024-06-13 23:49] VITALS: BP 123/73; PULSE 65; RESP 14
[2024-06-14] MEDS ORDERED: MECL-134 PO (01:17)
== END 2024-06-14 01:45 | disposition home or self-care (01) ==
LOC: EMS 19:27
DX: R42 Dizziness and giddiness (principal); F32.A Depression, unspecified; Z90.49 Acquired absence of other specified parts of digestive tract
CPT/HCPCS: 99284; 96374; 96375; 96361; 80053; 82550; 85025; 36415; 93005; J1885; J2270; J2405; J7030

== ENCOUNTER 2024-07-18 22:09 | Emergency (ER) | payer MEDICAID ==
[~2024-07-18] VITALS: Ht 177.8 cm; Wt 104.5 kg
[~2024-07-18 22:09] MED LIST changes: +MECL-134 PO
[2024-07-18] MEDS ORDERED: BUSP10TA23 PO (22:31)
[2024-07-18] MEDS ORDERED: FLUO-418 PO (22:31)
[2024-07-18] MEDS ORDERED: TRAZ-252 PO (22:31)
[2024-07-18 22:32] VITALS: BP 134/87; PULSE 67; RESP 16; TEMP 98.4; O2SAT 99
[2024-07-18] MEDS ORDERED: SITA50 PO (22:33)
[2024-07-18] MEDS ORDERED: SIMV-46 PO (22:35)
[2024-07-18] MEDS ORDERED: LORA10TA7 PO (22:35)
[2024-07-19] MEDS ORDERED: LOSARTAN POTASSIUM 25 MG TABLET PO ONE (03:30)
[2024-07-19] MEDS ORDERED: ACETAMINOPHEN 500 MG TABLET PO ONE (03:30)
== END 2024-07-19 03:45 | disposition left against medical advice (07) ==
LOC: EMS 22:09
DX: M54.50 Low back pain, unspecified (principal); Z53.21 Procedure and treatment not carried out due to patient leaving prior to being seen by health care provider